=== PATIENT | male | born 1995 | race Caucasian/White ===

== ENCOUNTER 2018-03-27 23:01 | Emergency (ER) | payer OTHER, SELFPAY ==
[2018-03-27 23:02] VITALS: BP 123/71; PULSE 95; RESP 16; TEMP 36.8; O2SAT 97; BMI 17.4
--- NOTE | 2018-03-27 23:18 | EKG12_ITS ---
Test Reason : ANXIETY Blood Pressure : / mmHG Vent. Rate : 073 BPM Atrial Rate : 073 BPM P-R Int : 160 ms QRS Dur : 104 ms QT Int : 396 ms P-R-T Axes : 086 083 069 degrees QTc Int : 436 ms Normal sinus rhythm with sinus arrhythmia Incomplete right bundle branch block Borderline ECG Confirmed by EDILIA KANG, CARINA ([id number]), proposal editor WERO CONTRERAS ([id number]) on 03/30/2018 3:22:15 PM Referred By: AMARI Confirmed By:CARINA YEBOAH MD
[2018-03-27 23:40] LABS: Absolute Lymphocyte Count 1.86 X10^3/ul (0.83-4.51); Absolute Neutrophil Count 3.3 X10^3/uL (2.0-7.7); Basophil# 0.02 X10^3/uL; Basophil% 0.4 % (0-1); Eosinophil# 0.03 X10^3/uL; Eosinophils% 0.5 % (0-5); Hematocrit 43.4 % (40-54); Hemoglobin 15.6 g/dl (13.0-16.5); Lymphocyte # 1.86 X10^3/ul (4.0); Lymphocyte % 32.9 % (19-41); Mean Corp Hgb Conc 35.9 g/gl (32-36); Mean Corpuscular Hgb 31.5 pg (27.0-32.0); Mean Corpuscular Volume 87.5 fL (80-94); Mean Platelet Vol. 9.5 fl (6.2-12.0); Monocyte# 0.42 X10^3/uL; Monocyte% 7.4 % (0-10); Neutrophil # 3.32 X10^3/uL (2.7-7.7); Neutrophil % 58.6 % (47-70); Platelet Count 207 K/mm3 (150-450); RBC Distribution Width CV 12.2 % (11.6-14.6); RBC Distribution Width SD 38.5 fl (35.1-43.9); Red Blood Count 4.96 M/mm3 (4.6-6.2); White Blood Count 5.7 K/mm3 (4.4-11.0)
[2018-03-27 23:41] LABS: POSITIVE COUNT NO; POSITIVE DIFFERENTIAL NO; POSITIVE MORPHOLOGY NO
[2018-03-27 23:59] LABS: Anion Gap 9 (5-15); BUN 10 mg/dL (7-18); BUN/Creat Ratio 11.6 RATIO (10-20); Calcium,Total 8.6 mg/dL (8.5-10.1); Chloride 105 mmol/L (98-107); Creatinine, Serum 0.86 mg/dL (0.70-1.30); EST Glomerular Filtration Rate 118 mL/min (>60); Est Glom Filt Rate - Afr Amer 143 mL/min (>60); Estimated Creatinine Clearance 91.48 ml/min; Glucose 105 mg/dL (74-106); Potassium 3.1 mmol/L (3.5-5.1); Sodium Level 138 mmol/L (136-145)
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
[2018-03-28] MEDS: 0.9% Normal Saline 1,000 ML 150 ML IV (01:00)
[2018-03-28 01:08] VITALS: PULSE 88; RESP 18
== END 2018-03-28 01:09 | disposition home or self-care (01) ==
PROVIDERS: Emergency Provider Emergency Medicine; Family Provider Family Medicine; PCP Family Medicine
DX: F41.9 Anxiety disorder, unspecified (principal); E87.6 Hypokalemia; F10.129 Alcohol abuse with intoxication, unspecified; Y90.5 Blood alcohol level of 100-119 mg/100 ml
CPT/HCPCS: 80048; 80320; 85025; 93005; 99285; J7030; G0480

== ENCOUNTER 2018-04-12 13:56 | Emergency (ER) | payer OTHER, SELFPAY ==
[2018-04-12 13:58] VITALS: BP 125/65; PULSE 72; RESP 18; TEMP 36; O2SAT 99; BMI 19.2
[2018-04-12 14:30] LABS: Absolute Lymphocyte Count 1.52 X10^3/ul (0.83-4.51); Absolute Neutrophil Count 6.4 X10^3/uL (2.0-7.7); Basophil# 0.01 X10^3/uL; Basophil% 0.1 % (0-1); Eosinophil# 0.02 X10^3/uL; Eosinophils% 0.2 % (0-5); Hematocrit 51.2 % (40-54); Hemoglobin 17.1 g/dl (13.0-16.5); Lymphocyte # 1.52 X10^3/ul (4.0); Lymphocyte % 18.1 % (19-41); Mean Corp Hgb Conc 33.4 g/gl (32-36); Mean Corpuscular Hgb 30.6 pg (27.0-32.0); Mean Corpuscular Volume 91.6 fL (80-94); Monocyte# 0.44 X10^3/uL; Monocyte% 5.3 % (0-10); Neutrophil # 6.38 X10^3/uL (2.7-7.7); Neutrophil % 76.2 % (47-70); Platelet Count 194 K/mm3 (150-450); RBC Distribution Width CV 12.8 % (11.6-14.6); RBC Distribution Width SD 42.7 fl (35.1-43.9); Red Blood Count 5.59 M/mm3 (4.6-6.2); White Blood Count 8.4 K/mm3 (4.4-11.0)
--- NOTE | 2018-04-12 14:32 | ED.DCSUM_ITS ---
- ER Visit Summary Date of Service: 04/12/18 Chief Complaint: [] Suicidal ideation considering jumping off a bridge History of Present Illness: The patient is a 22 M [] patient indicates had increasing psychosocial stress related to conflict with her roommate he lives with, he had his hours cut as his job at [employer], he broke up with his girlfriend, because of all the above his depression and intermittent suicidal thoughts have intensified today he is constantly thinking about suicide he came to the emergency department. He denies drug or alcohol abuse he denies a past history he was seeing a counselor at one point time but currently is not Physical Examination: [] His vital signs are within normal range his blood pressure is 125/65 is resting comforting the bed he is cooperative General, no distress resting comfortably HEENT is generally unremarkable The neck is supple no adenopathy Cardiovascular, regular rate and rhythm Lungs, clear bilateral Abdomen, soft nontender Extremities, no clubbing cyanosis or edema Neurologic, awake alert answering questions appropriately moving all 4 extremities no hallucinations he is cooperative Test Results: [] Emergency Department Course and Treatment: [] His complaints and the above we have asked mental health services to see him screening studies are obtained these will be on the chart Treatment Plan: [] Disposition: [] Pending mental health evaluation Impression: [] Suicidal ideation This note was generated with [employer] dictation software. It may contain incorrect words, spelling, and punctuation that were not noted in review of the chart prior to signing ED Disposition - Plan for ED Patient: Chief Complaint: Suicidal Referrals: Benjamin Wilburn MD [Primary Care Provider] -
[2018-04-12 14:38] LABS: POSITIVE COUNT NO; POSITIVE DIFFERENTIAL NO; POSITIVE MORPHOLOGY NO
[2018-04-12 14:39] LABS: Anion Gap 7 (5-15); BUN 11 mg/dL (7-18); BUN/Creat Ratio 10.9 RATIO (10-20); Calcium,Total 8.9 mg/dL (8.5-10.1); Chloride 103 mmol/L (98-107); Creatinine, Serum 1.01 mg/dL (0.70-1.30); EST Glomerular Filtration Rate 98 mL/min (>60); Est Glom Filt Rate - Afr Amer 119 mL/min (>60); Estimated Creatinine Clearance 85.75 ml/min; Glucose 84 mg/dL (74-106); Sodium Level 138 mmol/L (136-145)
[2018-04-12 14:47] LABS: Alcohol, Blood (Medical)-Serum < 3.0 mg/dL
[2018-04-12 15:01] VITALS: RESP 16
[2018-04-12 15:39] LABS: Amphetamine Urine VISTA NEGATIVE (<1000 ng/mL); Barbiturate Urine VISTA NEGATIVE (< 200 ng/mL); Benzodiazepine Urine VISTA NEGATIVE (< 200 ng/mL); Cocaine Urine VISTA NEGATIVE (< 300 ng/mL); Ecstacy Urine VISTA NEGATIVE (< 500 ng/mL); Methadone Urine VISTA NEGATIVE (< 300 ng/mL); PCP Urine VISTA NEGATIVE (< 25 ng/mL); THC Urine VISTA NEGATIVE (< 50 ng/mL); Vista UDS pH Range 5
--- NOTE | 2018-04-12 15:45 | ED.RN ---
aditya from crisis called back will be in shortly
[2018-04-12 16:12] VITALS: RESP 14; O2SAT 100
[2018-04-12 17:00] VITALS: RESP 15
--- NOTE | 2018-04-12 17:18 | ED.VISSUMM ---
- ER Visit Summary Date of Service: 04/12/18 Chief Complaint: [] History of Present Illness: The patient is a 22 M [] Physical Examination: [] Test Results: [] Emergency Department Course and Treatment: [] Treatment Plan: [] Disposition: [] Impression: [] This note was generated with [employer] software. It may contain incorrect words, spelling, and punctuation that were not noted in review of the chart prior to signing ED Disposition - Plan for ED Patient: Disposition: Home or Assisted Living Chief Complaint: Suicidal Referrals: Benjamin Wilburn MD [Primary Care Provider] - 3-5 Days Additional Instructions: You have an appointment with counseling center, please follow-up. If you have any thoughts of hurting herself please return to the emergency department Y
[2018-04-12 18:05] VITALS: BP 124/60; PULSE 70; RESP 16; O2SAT 100
== END 2018-04-12 18:06 | disposition home or self-care (01) ==
PROVIDERS: Emergency Provider Emergency Medicine; Family Provider Family Medicine; PCP Family Medicine
DX: R45.851 Suicidal ideations (principal)
CPT/HCPCS: 36415; 80048; 80307; 80320; 85025; 99283; G0480

== ENCOUNTER 2020-09-10 18:49 | Emergency (ER) | payer OTHER, MEDICAID, SELFPAY ==
[2020-09-10 18:49] VITALS: BP 147/74; PULSE 76; RESP 15; TEMP 36.7; O2SAT 96
--- NOTE | 2020-09-10 19:06 | ED.VIS.LOWEX ---
History of Present Illness Chief Complaint: Lower Extremity Injury Informant: Patient Occurred: Days - 3 Mechanism/Context: Injury - right yoon, Fall Context: Sudden Onset - pain worse yesterday Quality of Pain: Aching Location: right lower anterior leg, at site of injury only Current Severity: Mild Maximum Severity: Moderate Worsened by: walking Relieved by: rest Associated Symptoms: Negative for: Parasthesia, Weakness, Loss of Funtion Narrative: Patient works at a restaurant as a grill or/cook. He fell through a trapdoor over a grease trap that was not secured properly, resulting in an injury to his right yoon. Injury he did not think was major at the time, he was able to work and walk. Started hurting worse last night so he presents for evaluation for the first time. No other injury. No paresthesias in his foot. Past Medical History - Allergies and Home Meds Allergies/Adverse Reactions: Allergies No Known Allergies Allergy (Verified 04/12/18 13:58) Primary Care Physician: [facility] [GROUP OF PHYSICIANS] - As Needed Past Medical History: None Smoking Status: Current every day smoker Review of Systems General: Denies: Chills, Fever, Sweats Eyes: Denies: Visual changes - bilaterally, Diplopia ENT: Denies: Rhinorrhea, Sore throat Cardiovascular: Denies: Chest pain, Palpitations Respiratory: Denies: Dyspnea, Cough, Dyspnea on exertion Gastrointestinal: Denies: Abdominal pain, Nausea, Vomiting, Diarrhea, Melena, Hematochezia Genitourinary: Denies: Dysuria, Hematuria, Frequency Musculoskeletal: Reports: Extremity Pain. Denies: Back pain Skin: Reports: Abrasions. Denies: Rash, Wounds Neurological: Denies: Headache, Weakness, Numbness Physical Exam Vital Signs/Narrative: Vital Signs Temp Pulse Resp BP Pulse Ox 09/10/20 18:49 98.1 F 76 15 147/74 H 96 Inital Vital Signs reviewed: Yes - Extremity Exam Right Tib fib: Abrasion - Middle of lower leg anteriorly, mild tenderness in this area but nowhere else in the tibia, fibula which is nontender throughout its course, and the anterior muscular compartment of the lower leg.. Negative for: Limited ROM - Active dorsiflexion and plantarflexion without any significant pain or limitation General: Well nourished, Well developed, - - Well-appearing no acute distress Head: Normocephalic, Atraumatic Skin: Normal color, No rash, Trauma - Minor abrasion at site of injury right yoon, skin intact no active bleeding or signs of infection Neurological: Alert, Oriented x3, Cranial nerves II-XII grossly intact, Normal Strength, Normal Sensation, Normal Gait Psychological: Normal affect, Normal Mood Diagnostic/Tx/Re-eval Clinical Impression(s) from Imaging Studies Tibia/Fibula X-Ray 09/10/20 19:10 IMPRESSION: Normal x-ray examination of the tibia and fibula. Electronically Signed: Gumaro Nur MD at 19:49 EDT , Service support , - Medical Decision Making On my interpretation 2 view x-ray series of the right tibia/fibula are negative/normal with no sign of any fracture. Patient reassured, I do not think he needs any work restrictions. Supportive care advised. ED Disposition - Plan for ED Patient: Disposition: Home or Assisted Living Diagnosis: Contusion of right lower leg Instructions: ED Contusion, Lower Extremity Referrals: [facility] [GROUP OF PHYSICIANS] - As Needed
--- NOTE | 2020-09-10 19:10 | RAD_ITS ---
STUDY: X-RAY - RIGHT TIBIA AND FIBULA REASON FOR EXAM: Male, 25 years old. injury TECHNIQUE: 2 view(s) of the tibia and fibula were obtained. COMPARISON: None. FINDINGS: Normal visualized tibia. Normal visualized fibula. There is no demonstrated acute fracture. The soft tissue structures are unremarkable. RAD/Tibia & Fibula 2 Views IMPRESSION: Normal x-ray examination of the tibia and fibula. Electronically Signed: Gumaro Nur MD at 19:49 EDT , Service support ,
[2020-09-10 20:07] VITALS: BP 148/74; PULSE 79; RESP 16; O2SAT 99
== END 2020-09-10 20:07 | disposition home or self-care (01) ==
LOC: ED 19:14
PROVIDERS: Emergency Provider Emergency Medicine
DX: S80.11XA Contusion of right lower leg, initial encounter (principal); F17.200 Nicotine dependence, unspecified, uncomplicated; W13.3XXA Fall through floor, initial encounter; Y93.89 Activity, other specified; Y92.511 Restaurant or cafe as the place of occurrence of the external cause; Y99.0 Civilian activity done for income or pay
CPT/HCPCS: 73590; 99282

== ENCOUNTER 2020-10-29 11:36 | Emergency (ER) | payer MEDICAID, SELFPAY ==
[2020-10-29 11:37] VITALS: BP 125/72; PULSE 86; RESP 15; TEMP 36.6; O2SAT 97; BMI 19.5
--- NOTE | 2020-10-29 11:51 | EDS_ITS ---
HPI HPI - URI History of Present Illness Chief Complaint: Sore Throat Informant: patient Onset/Context/Timing Onset: Yesterday Context: Gradual Onset Timing: Continuous Quality: Sore Location: Throat Current Severity: Severe Maximum Severity: Severe Worsened by: Swallowing Relieved by: - Narrative Narrative: Patient states he started having a sore throat last night. 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 He denies any other symptoms. No fevers or chills, congestion, cough, shortness of breath, earache, loss of taste or smell, exposure to Covid that he knows of, he has never had Covid or been vaccinated. ROS ROS ED Constitutional Constitutional ED: Denies chills or fever(s) Eyes Eyes: Denies change in vision or diplopia ENT ENT ED: Reports sore throat; Denies ear pain or rhinorrhea Cardiovascular Cardiovascular: Denies chest pain or palpitations Respiratory/Chest Respiratory/Chest: Denies cough or dyspnea Gastrointestinal Gastrointestinal: Denies abdominal pain, diarrhea, nausea or vomiting Genitourinary Genitourinary ED: Denies dysuria or hematuria Musculoskeletal Musculoskeletal: Denies back pain or neck pain Integumentary Denies abscess or rash Neurologic Neurologic: Denies headache(s), paresthesias or weakness Psychiatric Psychiatric: Denies anxiety or suicidal thoughts [facility] Medical History (Updated 10/29/20 @ 12:[address] Zane Wakefield MD) ADHD Home Medications NK 04/12/18 [History Last Taken Unknown] Allergy/AdvReac Type Severity Reaction Status Date / Time No Known Allergies Allergy Verified 04/12/18 13:58 Social History Smoking Status: Current every day smoker tobacco type: cigarettes EXAM Physical Exam Const Vital Signs: 10/29/20 11:37 10/29/20 12:07 Temperature 97.9 F Temperature Source Oral Pulse Rate 86 Respiratory Rate 15 Respiratory Effort Normal Respiratory Pattern Normal Blood Pressure 125/72 H Blood Pressure Mean 89 Pulse Ox 97 Oxygen Delivery Method Room Air Positive well nourished and well developed General Appearance ED: well developed and NAD HEENT Reports moist mucous membranes HEENT Narrative: No trismus. Diffuse posterior oropharyngeal erythema without asymmetry, tonsillar edema, petechiae, or exudates. normocephalic and atraumatic Eyes PERRL and EOMs intact bilaterally Neck full ROM, no lymphadenopathy and supple Lymph Lymphatic: no lymphadenopathy noted and no lymphedema noted Resp normal respiratory effort Extremity normal to inspection General Extremety ED: Negative for edema General Extremity: Negative for edema Neuro oriented x3, CN's II-XII intact bilaterally and no sensory deficits noted Sensorium / Orientation: awake and alert Motor Exam: strength 5/5 throughout Skin no rashes or lesions noted and no wounds MDM MDM MDM Narrative Medical decision making narrative: Nursing obtained an excellent quality rapid strep swab, it is negative. Culture is sent and pending. I think treating according to the test results is most reasonable. He was given a dose of Naprosyn and Decadron here for symptom treatment, and discharged home in stable condition with instructions for supportive care and follow-up as needed. Likely viral in etiology given these results so far. Lab Data Attestation: I reviewed the patient's lab results. Discharge Plan Triage Chief Complaint: Sore Throat ED Provider: Zane Wakefield Dx/Rx/DC Orders Clinical Impression: Pharyngitis Instructions: ED Pharyngitis, Report Pending Prescriptions: No Action NK RF: 0 Primary Care Provider: Care Physician,No Primary Referrals: Sissy Graf [NON-STAFF] - 1 Week if not improving Care Physician,No Primary [Primary Care Provider] - Disposition Disposition: Home, self care
[2020-10-29] MEDS: Naproxen 250 MG Tablet 500 MG PO (11:56)
[2020-10-29] MEDS: dexAMETHasone 4 MG Tablet 8 MG PO (11:56)
[2020-10-29 12:32] VITALS: PULSE 81; RESP 16; O2SAT 97
--- NOTE | 2020-10-29 12:33 | ED.RN ---
THIS NURSE REVIEWED D/C INSTRUCTIONS WITH PT. PT VERBALIZED UNDERSTANDING OF INSTRUCTIONS. PT DENIES FURTHER NEEDS OR QUESTIONS AT THIS TIME. PT AMBULATES FROM ROOM ON OWN WITHOUT ASSISTANCE FROM STAFF
== END 2020-10-29 12:33 | disposition home or self-care (01) ==
PROVIDERS: Emergency Provider Emergency Medicine
DX: J02.9 Acute pharyngitis, unspecified (principal); F17.210 Nicotine dependence, cigarettes, uncomplicated
CPT/HCPCS: 87880; 99285

== ENCOUNTER 2020-12-22 18:19 | Emergency (ER) | payer MEDICAID, SELFPAY ==
[2020-12-22 18:20] VITALS: BP 134/80; PULSE 63; RESP 18; TEMP 36.6; O2SAT 96
--- NOTE | 2020-12-22 19:48 | EX.ED.DYSGE1 ---
HPI History of Present Illness Chief Complaint: Mental Health Narrative Narrative: Patient states he has been overworked at his job, and has a history of insomnia and as a result of these, has not slept in 5 days very much at all and is asking for something. He has tried melatonin and it does not work for him at all. He also has not had the Covid vaccine and would like it, and now we are offering the [employer] injection here in the emergency department. PFSH PFS Medical History ADD (attention deficit disorder) ADHD Home Medications zolpidem [Ambien] 10 mg PO QHS PRN #1 tab 12/22/20 [Rx Last Taken Unknown] Allergy/AdvReac Type Severity Reaction Status Date / Time No Known Allergies Allergy Verified 12/22/20 18:20 Surgical History History of surgery History of surgery Social History Smoking Status: Current every day smoker tobacco type: cigarettes ROS ROS ED Constitutional Constitutional ED: Denies chills or fever(s) Eyes Eyes: Denies change in vision or diplopia ENT ENT ED: Denies rhinorrhea or sore throat Cardiovascular Cardiovascular: Denies chest pain or palpitations Respiratory/Chest Respiratory/Chest: Denies cough or dyspnea Gastrointestinal Gastrointestinal: Denies abdominal pain, diarrhea, nausea or vomiting Genitourinary Genitourinary ED: Denies dysuria or hematuria Musculoskeletal Musculoskeletal: Denies back pain or neck pain Integumentary Denies abscess or rash Neurologic Neurologic: Denies headache(s), paresthesias or weakness Psychiatric Psychiatric: Reports as per HPI and other Details: Insomnia ; Denies anxiety or suicidal thoughts EXAM Physical Exam Const Vital Signs: 12/22/20 18:20 Temperature 97.9 F Temperature Source Temporal Pulse Rate 63 Respiratory Rate 18 Blood Pressure 134/80 H Blood Pressure Mean 98 Pulse Ox 96 Oxygen Delivery Method Room Air Positive well nourished and well developed General Appearance ED: well developed and NAD HEENT Reports moist mucous membranes normocephalic and atraumatic Eyes PERRL and EOMs intact bilaterally Neck full ROM and supple Resp normal respiratory effort and clear to auscultation bilaterally Cardio regular rate, regular rhythm and no murmurs GI non-tender and non-distended Auscultation: normoactive bowel sounds Palpation: soft Back/Spine no CVA tenderness General Back: other FROM Extremity normal to inspection General Extremety ED: Negative for edema, pulses abnormal or tenderness General Extremity: Negative for edema or pulses abnormal Neuro oriented x3, CN's II-XII intact bilaterally and no sensory deficits noted Sensorium / Orientation: awake and alert Motor Exam: strength 5/5 throughout Psych mental status grossly normal, thought process normal and activity/motor behavior normal Skin no rashes or lesions noted and no wounds MDM MDM MDM Narrative Medical decision making narrative: Patient will be given a prescription for 1 single dose of Ambien and advised to follow-up with his doctor if he needs further doses of controlled substances. COVID-19 vaccine was given. Discharge Plan Triage Chief Complaint: Mental Health ED Provider: Zane Wakefield Dx/Rx/DC Orders Clinical Impression: Insomnia Instructions: ED Insomnia, Viral Vector COVID-19 Vaccine Prescriptions: New zolpidem [Ambien] 10 mg tablet 10 mg PO QHS PRN (Reason: insomnia) Qty: 1 RF: 0 Primary Care Provider: Benjamin Wilburn Referrals: Benjamin Wilburn MD [Primary Care Provider] - As Needed Disposition Disposition: Home, Self Care
[2020-12-22 19:58] VITALS: BP 131/65; PULSE 78; RESP 19; O2SAT 97
== END 2020-12-22 19:59 | disposition home or self-care (01) ==
PROVIDERS: Emergency Provider Emergency Medicine; PCP Family Medicine
DX: G47.00 Insomnia, unspecified (principal); F17.210 Nicotine dependence, cigarettes, uncomplicated; Z23 Encounter for immunization
CPT/HCPCS: 91303; 99284